=== PATIENT | female | born 1990 | race African-American/Black ===

== ENCOUNTER 2019-05-27 15:15 | Emergency (ER) | payer OTHER ==
[~2019-05-27] VITALS: Ht 170.2 cm; Wt 81.3 kg
[2019-05-27] MEDS ORDERED: PREN1CHW6 PO (15:19)
[2019-05-27 16:40] LABS: HEMATOCRIT 38.2 % (36.0-47.0); HEMOGLOBIN 12.3 g/dl (12.0-15.5); MEAN CORPUSCULAR HEMOGLOBIN 26.9 pg (27.0-33.0); MEAN CORPUSCULAR HGB CONC 32.2 g/dl (32.0-36.5); MEAN CORPUSCULAR VOLUME 83.6 fl (80.0-96.0); PLATELET COUNT, AUTOMATED 259 10^3/uL (150-450); RED BLOOD COUNT 4.57 10^6/uL (4.00-5.40); WHITE BLOOD COUNT 7.8 10^3/uL (4.0-10.0)
[2019-05-27] MEDS ORDERED: ONDANSETRON 4 MG ORAL DISINTEGRATING TAB (Q0162 PER 1MG) PO ONE (16:45)
--- NOTE | 2019-05-27 18:03 | REPVR ---
PROCEDURE INFORMATION: Exam: US First Trimester, Transabdominal Exam date and time: 05/27/2019 5:31 PM Clinical history: 29 years old, female; Lmp or gestational age (in weeks): 7 weeks 0 day; Other: Vaginal bleeding; ; Additional info: Vb TECHNIQUE: Imaging protocol: Real-time transabdominal obstetrical ultrasound of the maternal pelvis and a first trimester , less than 14 weeks 0 days, with image documentation. COMPARISON: No relevant prior studies available. FINDINGS: GESTATION: Gestation: Single gestational sac in the uterus. Single fetus demonstrated within the gestational sac with a crown-rump length measuring 8.8 mm. Heart rate: heart rate is 138 beats per minute. Placenta: Unremarkable. No subchorionic bleed. Amniotic fluid: Amniotic and chorionic fluid are normal for gestational age. BIOMETRY: Estimated gestational age: Gestational age based on crown-rump length is 6 weeks 6 days versus 7 weeks using LMP of 04/08/2019. Estimated due date: MYRA is 01/14/2020 MATERNAL: Uterus: Unremarkable. Cervix: Unremarkable. Right adnexa: Unremarkable. Left adnexa: Unremarkable. Intraperitoneal: No intraperitoneal free fluid. IMPRESSION: Unremarkable for trimester gestation at 6 weeks 6 days based on crown-rump length. No subchorionic or paraplacental hemorrhage. Detailed structural survey can be performed between 19-20 weeks if clinically desired. Electronically signed by: Yash Buckner On 05/27/2019 18:03:17 PM
[2019-05-27] MEDS ORDERED: KEFL500C17 PO (18:24)
[2019-05-27] MEDS ORDERED: PROM25SU2 PR (18:27)
[2019-05-27 18:33] VITALS: BP 117/66
[2019-05-27 19:23] LABS: CHLAMYDIA DNA AMPLIFICATION NEGATIVE (NEGATIVE); GC DNA AMPLIFICATION NEGATIVE (NEGATIVE)
== END 2019-05-27 18:37 | disposition home or self-care (01) ==
LOC: M ED 15:15
DX: R82.71 Bacteriuria (principal); Z3A.01 Less than 8 weeks gestation of pregnancy
CPT/HCPCS: 36415; 76801; 81001; 84702; 85027; 86901; 87086; 87210; 87661; 93976; 99283; Q0162

== ENCOUNTER 2020-11-23 21:55 | Emergency (ER) | payer OTHER ==
[~2020-11-23] VITALS: Ht 170.2 cm; Wt 76.0 kg
[~2020-11-23 21:55] MED LIST: KEFL500C17 PO; PREN1CHW6 PO; PROM25SU3 PR
[2020-11-23] MEDS ORDERED: VENL37.598 (22:09)
[2020-11-23] MEDS ORDERED: CETI-24 (22:09)
[2020-11-24 00:06] LABS: BASO % 0.2 % (0.0-1.0); EOS # 0.1 10^3/uL (0.0-0.5); EOS % 1.7 % (0.0-3.0); HEMATOCRIT 38.4 % (36.0-47.0); HEMOGLOBIN 12.2 g/dl (12.0-15.5); LYMPH % 42.8 % (24.0-44.0); MEAN CORPUSCULAR HEMOGLOBIN 26.2 pg (27.0-33.0); MEAN CORPUSCULAR HGB CONC 31.8 g/dl (32.0-36.5); MEAN CORPUSCULAR VOLUME 82.6 fl (80.0-96.0); MONO # 0.8 10^3/uL (0.0-0.8); MONO % 16.8 % (2.0-8.0); NEUTROPHILS # 1.8 10^3/uL (1.5-8.5); NEUTROPHILS % 38.3 % (36.0-66.0); PLATELET COUNT, AUTOMATED 233 10^3/uL (150-450); RED BLOOD COUNT 4.65 10^6/uL (4.00-5.40); WHITE BLOOD COUNT 4.7 10^3/uL (4.0-10.0)
[2020-11-24 00:22] LABS: HCG, SERUM QUALITATIVE NEGATIVE (NEGATIVE)
[2020-11-24 00:28] LABS: BLOOD UREA NITROGEN 17 MG/DL (7-18); CALCIUM LEVEL 9.4 MG/DL (8.5-10.1); CARBON DIOXIDE LEVEL 27 MEQ/L (21-32); CHLORIDE LEVEL 109 MEQ/L (98-107); CREATININE FOR GFR 0.44 MG/DL (0.55-1.30); GLOMERULAR FILTRATION RATE > 60.0 (>60); GLUCOSE, FASTING 92 MG/DL (70-100); POTASSIUM SERUM 4.1 MEQ/L (3.5-5.1); SODIUM LEVEL 143 MEQ/L (136-145); THYROID STIMULATING HORMONE < 0.005 uIU/ML (0.358-3.740)
[2020-11-24] MEDS ORDERED: NS 1,000 ML IV ONE ×3 (00:35→03:10)
[2020-11-24] MEDS ORDERED: ONDANSETRON 4MG/2ML VIAL IV ONE (00:50)
--- NOTE | 2020-11-24 01:24 | REPVR ---
PROCEDURE INFORMATION: Exam: XR Chest Exam date and time: 11/24/2020 12:50 AM Age: 30 years old Clinical indication: Cough and other: Syncope TECHNIQUE: Imaging protocol: XR of the chest Views: 1 view. COMPARISON: No relevant prior studies available. FINDINGS: Lungs: Unremarkable. No consolidation. Pleural spaces: Unremarkable. No pleural effusion. No pneumothorax. Heart/Mediastinum: Unremarkable. No cardiomegaly. Bones/joints: Unremarkable. IMPRESSION: No acute infiltrates. Electronically signed by: Michelle Temple On 11/24/2020 01:24:17 AM
[2020-11-24 01:36] LABS: RSV AMPLIFICATION NEGATIVE (NEGATIVE)
[2020-11-24] MEDS ORDERED: METOCLOPRAMIDE INJ 10MG/2ML VIAL (J2765 PER 1) IV ONE ×2 (03:10)
[2020-11-24 06:10] VITALS: BP 138/62
--- NOTE | 2020-11-25 01:30 | ECGEPIP ---
[facility] - ED Test Date: 2020-11-23 Pat Name: JAMES SCHULER Department: Room: - Gender: Female [employer]: dave : 1990 Requested By: SERINA Freeman Order Number: [id number] Reading MD: Joseph Elias Measurements Intervals [place] Rate: 91 P: 37 LA: 158 QRS: 57 QRSD: 74 T: 27 QT: 372 QTc: 457 Interpretive Statements Normal sinus rhythm POSSIBLE INCOMPLETE RIGHT BUNDLE BRANCH BLOCK POOR R WAVE PROGRESSION NSTTW ABNORMALITY(S) NO PRIORS FOR COMPARISON Electronically Signed on 11-25-2020 1:29:34 EDT by Joseph Elias
== END 2020-11-24 06:31 | disposition home or self-care (01) ==
LOC: M ED 21:55
DX: I95.1 Orthostatic hypotension (principal); E05.90 Thyrotoxicosis, unspecified without thyrotoxic crisis or storm; F41.1 Generalized anxiety disorder; Z79.899 Other long term (current) drug therapy
CPT/HCPCS: 71045; 80048; 84439; 84443; 84703; 85025; 87631; 93005; 93041; 94760; 96361; 96374; 96375; 99285; J2405; J2765

== ENCOUNTER 2021-03-24 14:31 | Emergency (ER) | payer OTHER, SELFPAY ==
[~2021-03-24] VITALS: Ht 170.2 cm; Wt 75.0 kg
[~2021-03-24 14:31] MED LIST changes: +CETI-24; +VENL37.598
--- NOTE | 2021-03-24 17:15 | REP ---
INDICATION: IUD "falling out" cervix inflammed, discharge. COMPARISON: None. TECHNIQUE: Transabdominal and transvaginal scanning were performed. FINDINGS: Uterine dimensions are normal at 7.0 x 4.6 x 4.8 cm. Endometrial echo is 0.7 cm thick and centrally placed. No free fluid is seen in the cul-de-sac. Visualized bladder banks are smooth. IUD is seen in the endocervical canal. The uterus is retroverted retroflexed. The right ovary has dimensions of 2.6 x 1.7 x 2.3 cm. It's Doppler flow is normal with a resistive index of 0.69. The left ovary dimensions are normal as well at 4.1 x 2.4 x 3.2 cm. It's Doppler flow was normal with resistive index of 0.59. IMPRESSION: Patient's IUD is noted in the endocervical canal.. Retroverted retroflexed uterus. Normal ovaries. <Electronically signed by Raphael Paz > 03/24/21 [id number]
[2021-03-24 18:34] LABS: GC DNA AMPLIFICATION NEGATIVE (NEGATIVE)
[2021-03-24 19:00] LABS: BASO % 0.2 % (0.0-1.0); EOS # 0.1 10^3/uL (0.0-0.5); EOS % 1.3 % (0.0-3.0); HEMATOCRIT 39.2 % (36.0-47.0); HEMOGLOBIN 13.2 g/dl (12.0-15.5); LYMPH % 45.6 % (24.0-44.0); MEAN CORPUSCULAR HEMOGLOBIN 27.8 pg (27.0-33.0); MEAN CORPUSCULAR HGB CONC 33.7 g/dl (32.0-36.5); MEAN CORPUSCULAR VOLUME 82.5 fl (80.0-96.0); MONO # 0.6 10^3/uL (0.0-0.8); MONO % 13.6 % (2.0-8.0); NEUTROPHILS # 1.7 10^3/uL (1.5-8.5); NEUTROPHILS % 39.1 % (36.0-66.0); PLATELET COUNT, AUTOMATED 230 10^3/uL (150-450); RED BLOOD COUNT 4.75 10^6/uL (4.00-5.40); WHITE BLOOD COUNT 4.5 10^3/uL (4.0-10.0)
[2021-03-24 19:13] VITALS: BP 133/62
[2021-03-24] MEDS ORDERED: BACT800T5 PO (19:32)
--- NOTE | 2021-03-24 19:55 | CR.PDOC ---
General Date of Consultation: Mar 24, 2021 Consultation Consulted by ER for 31yo female presenting with pelvic pain and palpation of IUD strings at introitus. Per ER provider, pt states she noticed strings at home and tried pulling on them, and began to feel cramping pain. Attempt made to remove IUD in ER as well, however states that the IUD did not easily come out therefore contacted [facility] for assistance. Pt states she is otherwise without complaint. States IUD was inserted at time of 1 year ago and strings were never trimmed (inserted at her hometown in [place], then patient moved to [place]). She would like IUD removed and does not desire any further contraception at this time. She would like to use condoms and NFP. Exam: generally well appearing female. Speculum exam performed, strings easily visualized at introitus. Ringed forceps utilized to grasp stings proximal to IUD device and device removed intact without difficulty. Pt tolerated procedure well. Cervix inspected with friable appearance, otherwise no discharge or bleeding. No pain on exam, low suspicion for PID. Pain most likely due to misplacement of IUD in endocervical canal. Pt requesting Rx for PNV, provided today. Encouraged her to follow up prn. Vital Signs/I&O Vital Signs Date Time Temp Pulse Resp B/P (MAP) Pulse Ox O2 Delivery O2 Flow Rate FiO2 03/24/21 19:13 98.1 98 16 133/62 (85) 100 Room Air Laboratory Data Labs 24H Laboratory Tests 2 03/24/21 16:04: Immature Granulocyte % (Auto) 0.2, Neutrophils (%) (Auto) 39.1, Lymphocytes (%) (Auto) 45.6H, Monocytes (%) (Auto) 13.6H, Eosinophils (%) (Auto) 1.3, Basophils (%) (Auto) 0.2, Neutrophils # (Auto) 1.7, Lymphocytes # (Auto) 2.0, Monocytes # (Auto) 0.6, Eosinophils # (Auto) 0.1, Basophils # (Auto) 0.0, Nucleated Red Blood Cells % (auto) 0.0 03/24/21 16:18: Urine Color YELLOW, Urine Appearance HAZY, Urine pH 7.0, Urine Specific [place] 1.021, Urine Protein NEGATIVE, Urine Glucose (UA) NEGATIVE, Urine Ketones NEGATIVE, Urine Blood NEGATIVE, Urine Nitrite NEGATIVE, Urine Bilirubin NEGATIVE, Urine Urobilinogen 2.0H, Urine Leukocyte Esterase 2+H, Urine WBC (Auto) 6H, Urine RBC (Auto) 4H, Urine Hyaline Casts (Auto) 0, Urine Bacteria (Auto) NEGATIVE, Urine Squamous Epithelial Cells 3, Urine Mucus (Auto) SMALL, Urine Sperm (Auto) , Chlamydia trachomatis DNA ([place]) NEGATIVE, Neisseria gonorrhoeae DNA ([place]) NEGATIVE, Trichomonas vaginalis (PCR) NOT DETECTED 03/24/21 18:46: POC Beta HCG, Quantitative < 5.0 03/24/21 18:49: POC Glucose (Misc Panel) 98, POC Sodium (Misc Panel) 143, POC Potassium (Misc Panel) 4.0, POC Chloride (Misc Panel) 102, POC Total CO2 (Misc Panel) 25.0, POC Blood Urea Nitrogen (Misc Panel 14, POC Ionized Calcium (Misc Panel) 5.4H, POC Creatinine (Misc Panel) 0.3L, POC Hematocrit (Misc Panel) 39.0 CBC/BMP Laboratory Tests 03/24/21 16:04 Microbiology Microbiology 03/24/21 Urine Culture, Received Pending Allergies Coded Allergies: No Known Drug Allergies (Verified Allergy, Unknown, 05/27/19) Home Medications Scheduled Sulfamethoxazole/Trimethoprim (Bactrim Ds Tablet) 1 Each Tablet, 1 TAB PO Q12H, #14 Miscellaneous Medications Cetirizine HCl (Cetirizine HCl) 10 Mg Tablet, (Reported) Venlafaxine HCl (Venlafaxine HCl ER) 37.5 Mg Cap.er.24h, (Reported) WAQAR SUAREZ M.D. Mar 24, 2021 19:55
== END 2021-03-24 20:04 | disposition home or self-care (01) ==
LOC: M ED 14:31
DX: N39.0 Urinary tract infection, site not specified (principal); T83.89XA Other specified complication of genitourinary prosthetic devices, implants and grafts, initial encounter; X58.XXXA Exposure to other specified factors, initial encounter; Y92.89 Other specified places as the place of occurrence of the external cause

== ENCOUNTER → 2021-04-24 | Outpatient (CLI) | payer OTHER ==
[~2021-04-24] MED LIST changes: +BACT800T5 PO
--- NOTE | 2021-04-26 10:49 | REP ---
INDICATION: THYROID TOXICOSIS COMPARISON: None. TECHNIQUE/RADIOTRACER AND DOSE: 340.0 uCi of Iodine-123 sodium iodide is ingested and functional thyroid images and thyroid uptake values are acquired. FINDINGS: 24 hour thyroid uptake value is markedly increased at 98.9%. (25-35%). Functional images demonstrate homogeneous uptake in bilaterally and symmetrically enlarged thyroid lobes. The right lobe measures 7.1 and the left 6.7 cm in craniocaudal span. No cold or warm lesion is seen. IMPRESSION: Markedly increased uptake homogeneous function. Findings consistent with Graves disease. RECOMMENDATION: The critical information above was relayed directly by me by telephone to Latasha Miles on 04/26/2021 at 10:45 am with readback verification. <Electronically signed by Raphael Paz > 04/26/21 [id number]
== END ==
LOC: M RAD 14:42
PROVIDERS: ATTEND Internal Medicine Endocrinology, Diabetes & Metabolism
DX: E05.00 Thyrotoxicosis with diffuse goiter without thyrotoxic crisis or storm (principal)
CPT/HCPCS: 78012; A9516

== ENCOUNTER 2021-06-04 21:17 | Emergency (ER) | payer OTHER ==
[~2021-06-04] VITALS: Ht 170.2 cm; Wt 70.7 kg
[2021-06-04] MEDS ORDERED: METH10TA (21:32)
--- NOTE | 2021-06-04 23:46 | REPVR ---
PROCEDURE INFORMATION: Exam: CT Head Without Contrast Exam date and time: 06/04/2021 11:12 PM Age: 31 years old Clinical indication: Injury or trauma; Fall; Blunt trauma (contusions or hematomas); Additional info: [place] TECHNIQUE: Imaging protocol: Computed tomography of the head without contrast. Radiation optimization: All CT scans at this facility use at least one of these dose optimization techniques: automated exposure control; mA and/or kV adjustment per patient size (includes targeted exams where dose is matched to clinical indication); or iterative reconstruction. COMPARISON: [place] THYROID IMAGW/UPTAKE SINGLE 04/25/2021 2:59 PM FINDINGS: Brain: Normal. No hemorrhage. Unremarkable white matter. No mass effect. Cerebral ventricles: No ventriculomegaly. Paranasal sinuses: Visualized sinuses are unremarkable. No fluid levels. Mastoid air cells: Visualized mastoid air cells are well aerated. Bones/joints: Unremarkable. No acute fracture. Soft tissues: Unremarkable. IMPRESSION: No acute intracranial abnormality. Electronically signed by: Yvon Temple On 06/04/2021 23:45:15 PM
--- NOTE | 2021-06-04 23:47 | REPVR ---
PROCEDURE INFORMATION: Exam: CT Cervical Spine Without Contrast Exam date and time: 06/04/2021 11:12 PM Age: 31 years old Clinical indication: Injury or trauma; Fall; Blunt trauma; Additional info: Fell TECHNIQUE: Imaging protocol: Computed tomography images of the cervical spine without contrast. Radiation optimization: All CT scans at this facility use at least one of these dose optimization techniques: automated exposure control; mA and/or kV adjustment per patient size (includes targeted exams where dose is matched to clinical indication); or iterative reconstruction. COMPARISON: [place] NM THYROID IMAGW/UPTAKE SINGLE 04/25/2021 2:59 PM FINDINGS: Bones/joints: Nonspecific straightening. Vertebral body height and AP alignment is preserved. No acute cervical spine fracture. Discs/Spinal canal/Neural foramina: No definite significant central canal stenosis within limitations of technique. Thyroid: Prominent thyroid gland. Lungs: Lung apices are normal. Pleural spaces: No visible pneumothorax. Soft tissues: Unremarkable. IMPRESSION: No acute cervical spine fracture. Electronically signed by: Yvon Temple On 06/04/2021 23:47:21 PM
[2021-06-05 00:13] LABS: BASO % 0.4 % (0.0-1.0); EOS # 0.2 10^3/uL (0.0-0.5); EOS % 3.6 % (0.0-3.0); HEMATOCRIT 37.8 % (36.0-47.0); HEMOGLOBIN 12.8 g/dl (12.0-15.5); LYMPH # 2.6 10^3/uL (1.5-5.0); LYMPH % 46.8 % (24.0-44.0); MEAN CORPUSCULAR HEMOGLOBIN 27.7 pg (27.0-33.0); MEAN CORPUSCULAR HGB CONC 33.9 g/dl (32.0-36.5); MEAN CORPUSCULAR VOLUME 81.8 fl (80.0-96.0); MONO # 0.6 10^3/uL (0.0-0.8); MONO % 11.3 % (2.0-8.0); NEUTROPHILS # 2.1 10^3/uL (1.5-8.5); NEUTROPHILS % 37.4 % (36.0-66.0); PLATELET COUNT, AUTOMATED 225 10^3/uL (150-450); RED BLOOD COUNT 4.62 10^6/uL (4.00-5.40); WHITE BLOOD COUNT 5.6 10^3/uL (4.0-10.0)
[2021-06-05 00:30] LABS: ALBUMIN 3.4 GM/DL (3.2-5.2); ALT/SGPT 58 U/L (12-78); BILIRUBIN,DIRECT 0.3 MG/DL (0.0-0.2); BILIRUBIN,TOTAL 0.8 MG/DL (0.2-1.0); BLOOD UREA NITROGEN 12 MG/DL (7-18); CARBON DIOXIDE LEVEL 25 MEQ/L (21-32); CHLORIDE LEVEL 108 MEQ/L (98-107); CREATININE FOR GFR 0.63 MG/DL (0.55-1.30); FREE T4 1.49 NG/DL (0.76-1.46); GLOMERULAR FILTRATION RATE > 60.0 (>60); GLUCOSE, FASTING 100 MG/DL (70-100); SODIUM LEVEL 139 MEQ/L (136-145); THYROID STIMULATING HORMONE < 0.005 uIU/ML (0.358-3.740); TOTAL PROTEIN 7.6 GM/DL (6.4-8.2)
[2021-06-05 01:03] LABS: RSV AMPLIFICATION NEGATIVE (NEGATIVE)
[2021-06-05] MEDS ORDERED: OCUF0.25 OD (01:11)
[2021-06-05 01:14] VITALS: BP 114/75
== END 2021-06-05 01:16 | disposition home or self-care (01) ==
LOC: M ED 21:17
DX: R55 Syncope and collapse (principal); E05.90 Thyrotoxicosis, unspecified without thyrotoxic crisis or storm; H10.9 Unspecified conjunctivitis

== ENCOUNTER → 2021-10-04 | Outpatient (CLI) | payer OTHER ==
[~2021-10-04] MED LIST changes: +METH10TA; +OCUF0.25 OD
[2021-10-04 16:15] LABS: FREE T4 0.35 NG/DL (0.76-1.46); THYROID STIMULATING HORMONE 9.82 uIU/ML (0.358-3.740)
== END ==
LOC: M PLALAB 12:09
PROVIDERS: ATTEND Nurse Practitioner Family
DX: E89.0 Postprocedural hypothyroidism (principal)